=== PATIENT | male | born 1995 | race Two or more races ===

== ENCOUNTER 2022-10-29 15:29 | Emergency (ER) | payer MEDICAID, OTHER ==
[~2022-10-29] VITALS: Ht 175.3 cm; Wt 89.0 kg
[2022-10-29 15:38] VITALS: BP 145/107
[2022-10-29] MEDS ORDERED: cefTRIAXone 1GM/50ML D5W 50 ML IV ONE (20:00)
[2022-10-29] MEDS ORDERED: CLINDAMYCIN 900MG IV 50 ML IV ONE (20:00)
[2022-10-29] MEDS ORDERED: TETANUS-DIPTH-ACEL PERTUSSIS 0.5ML SYR Tdap IM ONE (20:00)
== END 2022-10-29 22:15 | disposition left against medical advice (07) ==
LOC: ER 15:29
DX: T23.222A Burn of second degree of single left finger (nail) except thumb, initial encounter (principal); X08.8XXA Exposure to other specified smoke, fire and flames, initial encounter; Y93.89 Activity, other specified; Y92.89 Other specified places as the place of occurrence of the external cause; Y99.8 Other external cause status
CPT/HCPCS: 73140; 90471; 90715; 96365; 96366; 96368; 99284; J0696; J3490